=== PATIENT | female | born 1980 | race African-American/Black ===

== ENCOUNTER 2021-04-27 10:52 | Emergency (ER) | payer OTHER ==
[2021-04-27 11:08] VITALS: BP 99/66; PULSE 83; TEMP 98.1; BMI 29.2
[2021-04-27] MEDS ORDERED: IBUPROFEN 400 MG TABLET (FP) PO ONE ×2 (11:44→11:46)
== END 2021-04-27 11:57 | disposition home or self-care (01) ==
LOC: JERFT 10:52
DX: S16.1XXA Strain of muscle, fascia and tendon at neck level, initial encounter (principal); V49.40XA Driver injured in collision with unspecified motor vehicles in traffic accident, initial encounter
CPT/HCPCS: 99283-25